=== PATIENT | female | born 2000 | race Hispanic/Latino ===

== ENCOUNTER 2023-01-15 20:09 | Emergency (ER) | payer BC ==
[2023-01-15] MEDS ORDERED: traMADol HCl 50 MG TAB ONE (21:14)
== END 2023-01-15 21:34 | disposition home or self-care (01) ==
LOC: CSHERS 20:09
DX: S43.101A Unspecified dislocation of right acromioclavicular joint, initial encounter (principal); W19.XXXA Unspecified fall, initial encounter; Y93.66 Activity, soccer